=== PATIENT | male | born 1980 | race Caucasian/White ===

== ENCOUNTER → 2023-10-06 13:02 | Outpatient (CLI) | payer OTHER, SELFPAY ==
--- NOTE | 2023-10-06 12:08 | DI.RAD_ITS ---
Exam(s) XR CHEST 2V PA LATERAL EXAM: XR CHEST 2V PA LATERAL CLINICAL HISTORY: COUGH R05.9 TECHNIQUE: 2D digital imaging was performed. Two views. COMPARISON: No exams were available for comparison FINDINGS: HEART: Normal size. Aorta: Not dilated. PULMONARY VASCULATURE: Normal. LUNGS: Bilateral patchy infiltrates in the lower lobes, just above the level of the diaphragm. PLEURAL SPACE: No pleural effusion or pneumothorax. BONE:Unremarkable for age. Soft tissues: Unremarkable. IMPRESSION: Bibasilar pneumonia. DATA REPOSITORY: RADIATION DOSE DELIVERED:
== END ==
PROVIDERS: Visit Provider Physician Assistant Medical
DX: J18.8 Other pneumonia, unspecified organism (principal)
CPT/HCPCS: 71046